=== PATIENT | male | born 1940 | race Caucasian/White ===

== ENCOUNTER 2019-09-08 19:56 | Inpatient (IN) | payer MEDICARE ==
[~2019-09-08] VITALS: Ht 180.3 cm; Wt 96.6 kg
[2019-09-08] MEDS ORDERED: CLOP75TA15 PO (20:28)
[2019-09-08] MEDS ORDERED: NETA2.5D OP (20:28)
[2019-09-08] MEDS ORDERED: SENN-261 PO (20:28)
[2019-09-08] MEDS ORDERED: DOCU-141 PO (20:28)
[2019-09-08] MEDS ORDERED: QUET25TA PO ×2 (20:28)
[2019-09-08] MEDS ORDERED: BISA5TAB10 PO (20:28)
[2019-09-08] MEDS ORDERED: ROSU5TAB PO (20:28)
[2019-09-08] MEDS ORDERED: LATA2.5D2 EACHEYE (20:28)
[2019-09-08] MEDS ORDERED: HALO5VIA9 IM (20:28)
[2019-09-08] MEDS ORDERED: BRIM5DRO2 OP (20:28)
[2019-09-08] MEDS ORDERED: ACET-2154 PO (20:28)
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
--- NOTE | 2019-09-08 21:33 | NUR ---
Pt medically cleared by Dr. Toney. Placed a call to Covering Machine Operator Helper Gricelda, [phone]. No answer, left a message.
--- NOTE | 2019-09-08 22:37 | NUR ---
Received call from Warranty Administrator Gricelda stating that she will be here within 1-2 hours to evaluate the patient.
[2019-09-08 22:51] LABS: BASOPHILS # (AUTO) 0.1 K/uL (0.0-8.0); BASOPHILS % (AUTO) 0.7 % (0.0-2.0); EOSINOPHILS # (AUTO) 0.2 K/uL (0.0-0.7); EOSINOPHILS % (AUTO) 2.9 % (0.0-7.0); HEMATOCRIT 44.6 % (36.7-47.1); HEMOGLOBIN 15.3 g/dL (12.5-16.3); LYMPHOCYTES # (AUTO) 1.4 K/uL (20.0-40.0); LYMPHOCYTES % (AUTO) 16.5 % (20.5-51.5); MEAN CORPUSCULAR HEMOGLOBIN 32.5 uug (23.8-33.4); MEAN CORPUSCULAR HGB CONC 34 g/dL (32.5-36.3); MEAN CORPUSCULAR VOLUME 95.1 fL (73.0-96.2); MONOCYTES # (AUTO) 0.7 K/uL (2.0-10.0); MONOCYTES % (AUTO) 8.1 % (0.0-11.0); NEUTROPHILS # (AUTO) 5.9 K/uL (1.8-8.9); NEUTROPHILS % (AUTO) 71.8 % (38.5-71.5); PLATELET COUNT (AUTO) 200 K/uL (152-348); WHITE BLOOD COUNT (AUTO) 8.2 K/uL (3.6-10.2)
[2019-09-08 23:00] LABS: CARBON DIOXIDE 28 mmol/L (21-32); CHLORIDE 108 mmol/L (98-107); CREATININE 0.6 mg/dL (0.6-1.3); GLUCOSE 96 mg/dL (74-106); POTASSIUM 3.8 mmol/L (3.5-5.1); UREA NITROGEN, BLOOD 13 mg/dL (7-18)
[2019-09-08 23:05] LABS: ALANINE AMINOTRANSFERASE 53 U/L (16-63); ALKALINE PHOSPHATASE 89 U/L (50-136); ASPARTATE AMINOTRANSFERASE 46 U/L (15-37); BILIRUBIN,DIRECT 0.3 mg/dL (0.0-0.2); BILIRUBIN,TOTAL 0.8 mg/dL (0.2-1.0); CREATINE KINASE, TOTAL 98 U/L (39-308); TOTAL PROTEIN, SERUM 7.4 g/dL (6.4-8.2)
[2019-09-08 23:11] LABS: ACETAMINOPHEN < 2.0 ug/mL (10-30); ETHANOL < 3 MG/DL (0-0)
[2019-09-08 23:13] LABS: THYROID STIMULATING HORMONE 0.926 mIU/mL (0.358-3.740)
--- NOTE | 2019-09-09 01:40 | NUR ---
Cat from the Crisis Team at bedside for evaluation.
--- NOTE | 2019-09-09 02:45 | NUR ---
Report given to Stephanie Mckenna RN.
[2019-09-09] MEDS ORDERED: MAGNESIUM HYDROXIDE 30 ML LIQUID UDC PO PRN (03:15)
[2019-09-09] MEDS ORDERED: LORAZEPAM 0.5 MG TABLET PO PRN (03:15)
[2019-09-09] MEDS ORDERED: MAG HYDROX/AL HYDROX/SIMETH 30 ML LIQUID UDC PO PRN (03:15)
--- NOTE | 2019-09-09 06:11 | NUR ---
GPS/RN: PT 79 Y/O MALE ADMITTED TO MHU UNDER THE CARE OF ANT COURTNEY WITH DX OF PSYCHOSIS. PT ADMITTED ON VOLUNTARY STATUS. PT ARRIVED VIA STECHER FROM ER BROUGHT BY STAFF. HISTORY OF DX: DEPRESSION, DEMENTIA, ENCEPHALOPATHY, ANXIETY, HTN AND PSYCHOSIS. PT KAYE IS HIS SON AND NOTIFIED OF ADMISSION. PT A/O X3, CALM BUT CONFUSE AND SOME AGITATION. 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 PT ON AND OFF YELLING IN SINGING LOUDLY. PT UNKEPT, SOME REDNESS ON BUTTOCK AND LEFT HIP DISCOLORATION, PT ON PLAVIS 75MG AND MULTIPLE REDNESS ON BUE NOTED. WILL MONITOR AND ENDORSE TO INCOMING NURSE. PT CLEARLY SPEAK BUT NOTED SOME ANXIETY, PER ADMISSION PT HAD AGGRESSION AND BECAME AGITATED WHILE AT SNF. PT ALSO SAID HE HAD HALLUCINATIONS WHICH STARTED RECENTLY. PT NON AMBULATORY, NEED ASSISTANT SUPERINTENDENT TO TRANSFER BY STAFF. PT THERAPY EVALUATION AND TREAT ORDER ENTERED. PT COVID 19 NEG FROM [facility]. NEW ADMISSION PACKAGE GIVEN AND PT SIGNED ALL FORMS, ADVISED ON RIGHTS AND PLACEMENT. PT WAS TRANSFER TO BED, BUT UP IN CORAL CHAIR NOW TO WATCH TV.
--- NOTE | 2019-09-09 07:18 | NUR ---
DR CAIN WAS NOTIFIED OF PATENT ADMISSION TO MHU. WILL CONTINUE TO MONITOR.
[2019-09-09 07:30] VITALS: BP 150/83
[2019-09-09] MEDS: SERTRALINE HCL 50 MG TABLET PO SCH ×2 (12:35→16:09)
[2019-09-09 15:07] VITALS: BP 148/84
--- NOTE | 2019-09-09 16:41 | NUR ---
received patient up to maria elena-chair, A/O x3 able to make needs known, notified pt's son for patient admitted ,seen and checked by Dr. Marinelli.
[2019-09-09] MEDS ORDERED: BISACODYL 5 MG TABLET.DR PO PRN (18:15)
--- NOTE | 2019-09-09 19:30 | NUR ---
Received patient in the hallway, awake, sitting in a Karla-chair. Not in distress. Deaf on the left ear. Denies any pain/discomforts. Very pleasant and cooperative. No hallucination, aggressiveness, agitation noted.Safety measure and fall precaution maintained. Continue care as planned.
[2019-09-09 20:21] VITALS: BP 155/81
--- NOTE | 2019-09-09 20:36 | NUR ---
BS 194mg/dl. Patient denies s/s of hyperglycemia, claiming that she had a lot of sweet intake today. Refused taking her Zyprexia , Insulin coverage and Lipitor. Charge nurse made aware. Addendum: 09/09/19 at 2041 by ESHA LINDQUIST RN Wrong patient.
[2019-09-09] MEDS: LATANOPROST OPHT DROP 2.5 ML BOTTLE EACHEYE SCH (21:00)
[2019-09-09] MEDS ORDERED: risperiDONE 0.25 MG TABLET PO SCH (21:00)
--- NOTE | 2019-09-10 05:19 | NUR ---
Shift End Report: Vs stable. No complaint presented all night. Slept fairly. Ambulated to the bathroom with FWW with slow, steady gait. Remain calm, and cooperative. Patient was so happy that he got his Hearing Aid back and now he said he can hear much better. All needs attended and met. No significant event reported all night.
--- NOTE | 2019-09-10 06:44 | NUR ---
Slept 4.3 hours.
[2019-09-10 07:30] VITALS: BP 140/81
[2019-09-10] MEDS: DOCUSATE SODIUM 100 MG CAPSULE PO SCH ×2 (08:08→17:08)
[2019-09-10] MEDS: CLOPIDOGREL 75 MG TABLET PO SCH (08:08)
[2019-09-10] MEDS: SERTRALINE HCL 50 MG TABLET PO SCH ×2 (12:45→17:08)
[2019-09-10] MEDS: COMBIGAN 0.2-0.5% EACHEYE SCH ×2 (12:45→17:08)
[2019-09-10 15:02] VITALS: BP 144/80
--- NOTE | 2019-09-10 15:52 | NUR ---
LETICIA Initial Discharge Note: Patient is currently residing at [address] [address] ([phone]) with his Nida Lyon. Per patient's son/DPOA, Hardeep ([phone]) patient might need a transitional facility which [facility] provides for the patient upon discharge prior to going home. Hardeep will be speaking with the commercial administrator at the facility to see which one of their facilities, longterm facility or memory care unit, will have the availability for the patient. LETICIA will continue to work with the patient, family, and MD to ensure a safe and proper discharge plan.
[2019-09-10] MEDS: risperiDONE 0.5 MG TABLET PO SCH (20:30)
[2019-09-10] MEDS: LATANOPROST OPHT DROP 2.5 ML BOTTLE EACHEYE SCH (20:36)
[2019-09-10] MEDS ORDERED: risperiDONE 0.25 MG TABLET PO SCH (21:00)
[2019-09-10 21:05] VITALS: BP 134/74
--- NOTE | 2019-09-10 22:00 | NUR ---
received to care, watching tv, ambulating with front wheel walker, pleasant upon approach. compliant with medications and staff direction. interacts minimally with peers. as of 2199, he remains awake, watching tv. no distress noted. will continue to monitor closely.
[2019-09-10] MEDS: ACETAMINOPHEN 325 MG TABLET PO PRN (22:40)
[2019-09-10] MEDS: TEMAZEPAM 7.5 MG CAPSULE PO PRN (22:40)
--- NOTE | 2019-09-10 22:40 | NUR ---
remains awake. PRN restoril was given, for insomnia.
--- NOTE | 2019-09-10 23:35 | NUR ---
pt found lying in the dining room, on the floor, next to his chair. according to his account, and that of his peer, and verified by the video playback, he was sleepy, so he gently laid himself onto the floor, to sleep. he was assisted back up in the maria elena chair, and went right to sleep. currently at [employer], for safety. no distress noted. Addendum: 09/11/19 at 0102 by TATO IRELAND LVN vital signs and blood sugar wnl.
[2019-09-10 23:40] VITALS: BP 146/90
--- NOTE | 2019-09-11 01:31 | NUR ---
pt is now awake. was assisted to the bathroom, then to bed, with alarm on, for safety.
[2019-09-11 04:46] LABS: *BILIRUBIN,URIN NEGATIVE (NEGATIVE); *BLOOD, URINE NEGATIVE (NEGATIVE); *CLARITY,URINE CLEAR (CLEAR); *COLOR,URINE YELLOW (YELLOW); *KETONES,URINE NEGATIVE (NEGATIVE); *UROBILINOGEN,URINE 0.2 E.U./dl (NORMAL); LEUKOCYTE ESTERASE ,URINE NEGATIVE (NEGATIVE); NITRITE, URINE NEGATIVE (NEGATIVE); PH,URINE 5.5 (5.0-8.0); UGLUCOSE NEGATIVE (NEGATIVE)
[2019-09-11 04:59] LABS: *AMPHETAMINE, URINE NEGATIVE (NEGATIVE); *BARBITURATE, URINE NEGATIVE (NEGATIVE); *CANNABINOID, URINE NEGATIVE (NEGATIVE); *COCCAINE, URINE NEGATIVE (NEGATIVE); *OPIATE, URINE NEGATIVE (NEGATIVE); *PHENCYCLIDINE SCREEN,URINE NEGATIVE (NEGATIVE)
--- NOTE | 2019-09-11 06:00 | NUR ---
slept 4.75 hours. is now awake. monitored closely, for safety. no distress noted.
[2019-09-11 07:30] VITALS: BP 116/71
[2019-09-11] MEDS: DOCUSATE SODIUM 100 MG CAPSULE PO SCH ×2 (08:05→16:16)
[2019-09-11] MEDS: CLOPIDOGREL 75 MG TABLET PO SCH (08:05)
[2019-09-11] MEDS: COMBIGAN 0.2-0.5% EACHEYE SCH ×3 (08:05→16:16)
--- NOTE | 2019-09-11 10:25 | NUR ---
SW Family Contact: Spoke with patient's son/DPOA, Hardeep ([phone]) after speaking with Dr. Marinelli who stated that patient can return home Monday or Monday depending on the facilities availability. Hardeep questioned a lot about the doctor's decision and why she came to this decision. This auto service writer stated that that if the patient does not meet criteria, he can not stay in the acute psych unit longer than he needs, and that he can continue treatment on an outpatient basis with an outpatient psychiatrist. Hardeep did not let this auto service writer speak with the facility environmental technician to arrange discharge planning. Hardeep does not seem to understand the process and in conflicted with his dad returning home or transferring him to the facilities's assisted unit or the memory care unit. Hardeep requested to speak with Dr. Marinelli and this auto service writer forwarded the message to the doctor.
[2019-09-11] MEDS: SERTRALINE HCL 50 MG TABLET PO SCH ×2 (12:45→16:16)
--- NOTE | 2019-09-11 15:12 | NUR ---
SW Family Contact: Spoke with patient's son/DPOA, Hardeep ([phone]) regarding patient's tentative discharge date which is set for Monday to confirm placement for this patient back to [facility]. This typewriter tester explained to Haredep in more dept the process of an acute psych unit and Hardeep was more understanding. Hardeep allowed this typewriter tester to speak with the zoning administrator at the facility, Valentine Andres ([phone]. [phone]) to discuss discharge planning. This typewriter tester was unable to reach Valentine and left a voicemail for a call back.
--- NOTE | 2019-09-11 15:30 | NUR ---
LETICIA Coordination of Care: LETICIA received a call back from Donna medical office administrator of [facility] ([phone]) on behalf of Valentine Turntable Engineer for [facility] ([phone]), regarding patient's discharge planning. Donna stated that they are looking into transferring the patient from the independent living unit of their facility to the assisted living unit. Donna shared that they are guaranteeing a bed available the patient on Monday09/16/19. This contract writer stated that we will plan for the patient for discharge on Monday09/16/19. This contract writer then called patient's son, Hardeep ([phone]) and updated him with the above information. Hardeep is agreeable with this plan for the patient.
[2019-09-11 16:00] VITALS: BP 138/78
--- NOTE | 2019-09-11 17:54 | NUR ---
patient is ambulating with FWW, assisted with all ADLS,compliant with all po medication.
[2019-09-11] MEDS: LATANOPROST OPHT DROP 2.5 ML BOTTLE EACHEYE SCH (20:50)
[2019-09-11] MEDS: risperiDONE 0.5 MG TABLET PO SCH (20:50)
[2019-09-11 21:34] VITALS: BP 150/72
[2019-09-11] MEDS: ACETAMINOPHEN 325 MG TABLET PO PRN (22:11)
[2019-09-11] MEDS: TEMAZEPAM 7.5 MG CAPSULE PO PRN (22:11)
--- NOTE | 2019-09-11 22:11 | NUR ---
remains awake. PRN restoril was given, for insomnia.
--- NOTE | 2019-09-11 23:00 | NUR ---
received to care, up in maria elena chair, watching tv, with peers. pleasant upon approach. compliant with medications, and staff direction. PRN restoril was given for insomnia, at 2210, and he was assisted to bed. as of 2299, he appears to be asleep. no distress noted. will continue to monitor closely.
--- NOTE | 2019-09-12 03:18 | NUR ---
PRN ativan given for restlessness
--- NOTE | 2019-09-12 06:00 | NUR ---
slept 5.75 hours total. continues to sleep. no distress noted.
[2019-09-12 07:30] VITALS: BP 123/66
[2019-09-12] MEDS: DOCUSATE SODIUM 100 MG CAPSULE PO SCH ×2 (08:53→17:09)
[2019-09-12] MEDS: CLOPIDOGREL 75 MG TABLET PO SCH (08:53)
[2019-09-12] MEDS: COMBIGAN 0.2-0.5% EACHEYE SCH ×3 (08:54→17:09)
--- NOTE | 2019-09-12 10:12 | NUR ---
LETICIA Coordination of Care: LETICIA called and spoke with Donna sales support administrator of [facility] ([phone]) to confirm bed availability for the patient for discharge on Monday09/16/19. Donna confirmed and patient's discharge is set for Monday.
[2019-09-12] MEDS: SERTRALINE HCL 50 MG TABLET PO SCH ×2 (12:17→17:09)
--- NOTE | 2019-09-12 15:30 | NUR ---
Social Work Individual Therapy: floor service worker spring met with pt for brief counseling to address patient's aggressive behaviors. Patient presents with euthymic mood and congruent affect. patient states that he has been "thinking a lot while being here", and shares that he gained a lot of insight about himself. SW actively listened and provided support and positive encouragement. Patient shares that he was depressed before but has learned a lot about himself and will continue to focus more on positive aspects and figure out why certain things happen in his life to learn and grow from his experiences. SW highlighted important factors the patient shared and encouraged patient to continue to stay positive and share with this television script writer and his peers.
[2019-09-12 16:00] VITALS: BP 123/63
--- NOTE | 2019-09-12 18:35 | NUR ---
EOS note: No significant acute changes this shift. Pt alert, responsive to verbal and tactile stimuli. Pt. compliant with medications and tx. Pt. exhibits appropriate behavior, no aggression, denies SI. Tolerated meals well. Ambulatory with FWW + 1 person standby assist. Frequent rounding done. Safety measures in place. Will endorse to oncoming shift.
[2019-09-12 20:00] VITALS: BP 126/70
[2019-09-12] MEDS: risperiDONE 0.5 MG TABLET PO SCH (20:28)
[2019-09-12] MEDS: LATANOPROST OPHT DROP 2.5 ML BOTTLE EACHEYE SCH (20:28)
[2019-09-12] MEDS: ACETAMINOPHEN 325 MG TABLET PO PRN (20:32)
[2019-09-12] MEDS: TEMAZEPAM 7.5 MG CAPSULE PO PRN (23:29)
--- NOTE | 2019-09-12 23:29 | NUR ---
assisted to bed. PRN restoril given for insomnia.
--- NOTE | 2019-09-12 23:50 | NUR ---
appears to be asleep. no distress noted.
--- NOTE | 2019-09-13 00:17 | NUR ---
received to care, up in maria elena chair, watching tv, with peers. pleasant upon approach. compliant with medications, and staff direction. as of 2199, he remains awake, watching tv. no distress noted. will continue to monitor closely. Addendum: 09/13/19 at 0019 by TATO IRELAND LVN wrong time documented. should be for 09/12/19 at 2200
[2019-09-13] MEDS: ACETAMINOPHEN 325 MG TABLET PO PRN (04:13)
--- NOTE | 2019-09-13 06:00 | NUR ---
slept 4.75 hours. is now awake. assited with AM care, and shower. currently up in maria elena chair, at nurses station. no distress noted.
[2019-09-13 07:30] VITALS: BP 120/63
--- NOTE | 2019-09-13 08:30 | NUR ---
Received patient in bed, Pt. is AAO x 2-3, NO acute distress noted. Vital signs stable for patient. NO agitation noted. Cooperative with care and will continue with care.
[2019-09-13] MEDS: DOCUSATE SODIUM 100 MG CAPSULE PO SCH ×2 (09:37→17:16)
[2019-09-13] MEDS: CLOPIDOGREL 75 MG TABLET PO SCH (09:37)
[2019-09-13] MEDS: COMBIGAN 0.2-0.5% EACHEYE SCH ×3 (09:39→17:16)
--- NOTE | 2019-09-13 10:08 | NUR ---
SW Family Contact: Spoke left a message for patient's son/DPHardeep CHOWDHURY ([phone]) to confirm what time he scheduled transportation for the patient for his discharge on Monday09/16/19. Awaiting for a call back.
[2019-09-13] MEDS: SERTRALINE HCL 50 MG TABLET PO SCH ×2 (13:26→17:16)
[2019-09-13 15:25] VITALS: BP 117/58
--- NOTE | 2019-09-13 19:16 | NUR ---
Patient in stable condition, NO new chagne of condition noted. Calm and cooperative with care and meds. Vital signs stable. Spoke with son and SW regarding discharge planning. All other needs attended, safety measures in place, skin kept clean and dry and will continue with care.
--- NOTE | 2019-09-13 19:49 | NUR ---
Endorsed to PM shift.
[2019-09-13 20:28] VITALS: BP 130/67
[2019-09-13] MEDS: risperiDONE 0.5 MG TABLET PO SCH (21:03)
[2019-09-13] MEDS: LATANOPROST OPHT DROP 2.5 ML BOTTLE EACHEYE SCH (21:04)
[2019-09-13] MEDS: TEMAZEPAM 7.5 MG CAPSULE PO PRN (22:20)
--- NOTE | 2019-09-13 23:02 | NUR ---
PATIENT RECEIVED IN ACTIVITIES ROOM INTERACTING WITH OTHERS AND WATCHING TELEVISION. PATIENT ALERT/ORIENTED X3 PATIENT IS CALM AND COOPERATIVE. NO AGGRESSIVE OR COMBATIVE BEHAVIOR NOTED. PATIENT COMPLAINT WITH MEDICATION. PATIENT IN NO APPARENT DISTRESS, WILL CONTINUE TO MONITOR. SAFE ENVIRONMENT PROVIDED, FREQUENT ROUNDING, AND CLUTTER FREE ENVIRONMENT. BED IN LOWEST POSITION, BED LOCKED, AND BED ALARM ON WHILE IN BED.
[2019-09-14 07:30] VITALS: BP 124/70
--- NOTE | 2019-09-14 08:00 | NUR ---
GPS: RECEIVED PATIENT AOX3 SEEN SITTING IN THE DINING ROOM WATCHING TV, PATINE CALM COOPERATIVE, NO DISTRESS ON VOLUNTARY STATUS, DENIES SI AND HI, WILL CONTINUE MONITOR
[2019-09-14] MEDS: DOCUSATE SODIUM 100 MG CAPSULE PO SCH ×2 (08:20→16:02)
[2019-09-14] MEDS: CLOPIDOGREL 75 MG TABLET PO SCH (08:20)
[2019-09-14] MEDS: COMBIGAN 0.2-0.5% EACHEYE SCH ×3 (08:25→16:02)
[2019-09-14] MEDS: SERTRALINE HCL 50 MG TABLET PO SCH ×2 (12:01→16:01)
[2019-09-14 16:00] VITALS: BP 114/75
--- NOTE | 2019-09-14 18:13 | NUR ---
patient having issue on the battery of his hearing aid, the junior technical writer tried changing battery but no available same battery for his hearing aid, patient remain calm compliant no distress
--- NOTE | 2019-09-14 19:55 | NUR ---
RECEIVED PATIENT IN HIS ROOM SEATED AT HIS BED. PATIENT HAS NO COMPLAIN OF PAIN AT THIS TIME, PATIENT AMBULATE FROM HIS ROOM TO THE ACTIVITY ROOM, WILL CONTINUE TO MONITOR.
[2019-09-14] MEDS: risperiDONE 0.5 MG TABLET PO SCH (20:35)
[2019-09-14] MEDS: LATANOPROST OPHT DROP 2.5 ML BOTTLE EACHEYE SCH (20:35)
[2019-09-14 20:54] VITALS: BP 116/70
[2019-09-14] MEDS: TEMAZEPAM 7.5 MG CAPSULE PO PRN (23:20)
--- NOTE | 2019-09-14 23:20 | NUR ---
PATIENT COMPLAIN OF UNABLE TO SLEEP, GIVEN RESTORIL ORDERED. PATIENT WAS INSTRUCTED TO GO BACK TO BED SO THAT MEDICATIONS WILL WORK, PATIENT WAS KEPT WARM AND DRY, WILL CONTINUE TO MONITOR.
--- NOTE | 2019-09-15 06:35 | NUR ---
PATIENT AWAKE, NO COMPLAIN OF PAIN NOR DISCOMFORT, NO BEHAVIORAL PROBLEMS NOTED AT THIS TIME, PATIENT SLEPT FOR 2.30 HRS, CONT TO MONITOR.
[2019-09-15 07:30] VITALS: BP 137/58
[2019-09-15] MEDS: CLOPIDOGREL 75 MG TABLET PO SCH (08:31)
[2019-09-15] MEDS: DOCUSATE SODIUM 100 MG CAPSULE PO SCH ×2 (08:31→17:19)
[2019-09-15] MEDS: COMBIGAN 0.2-0.5% EACHEYE SCH ×3 (08:39→17:18)
[2019-09-15] MEDS: SERTRALINE HCL 50 MG TABLET PO SCH ×2 (12:15→17:19)
[2019-09-15 15:38] VITALS: BP 141/76
[2019-09-15 20:32] VITALS: BP 119/70
[2019-09-15] MEDS: LATANOPROST OPHT DROP 2.5 ML BOTTLE EACHEYE SCH (21:04)
[2019-09-15] MEDS: risperiDONE 0.5 MG TABLET PO SCH (21:04)
[2019-09-15] MEDS: TEMAZEPAM 7.5 MG CAPSULE PO PRN (23:08)
[2019-09-16 07:30] VITALS: BP 146/78
[2019-09-16] MEDS: CLOPIDOGREL 75 MG TABLET PO SCH (08:41)
[2019-09-16] MEDS: DOCUSATE SODIUM 100 MG CAPSULE PO SCH (08:41)
[2019-09-16] MEDS: COMBIGAN 0.2-0.5% EACHEYE SCH (08:52)
--- NOTE | 2019-09-16 09:02 | NUR ---
Discharge Note: Patient will be discharged back to [facility] [address] [place] [address] ([phone]). Patients sonHardeep ([phone]) is aware and agreeable with discharge plans and will picking the patient up and providing transportation today at 11am. Spoke with Donna the senior systems administrator at the facility who confirmed patients arrival today and assigned room 11. Patient presents alert and oriented times 4. Patient denies suicidal or homicidal ideation. Patient presents with euthymic mood and congruent affect. Patient will be following up with his primary care physician Dr. Stanislaw Cifuentes [facility], [place] [address] ([phone]) and has a follow up appointment scheduled on September at 11am. Patient will be following up with his psychiatrist Dr. Art [address] [facility] [address], [place] [address] ([phone]) and has a follow up appointment scheduled on September at 2:30pm.
--- NOTE | 2019-09-16 11:18 | NUR ---
Patient discharged back to [facility] ,jessica's son Hardeep picked the patient up at 11am. Patient presents alert and oriented times 4. Patient denies suicidal or homicidal ideation. Patient presents with euthymic mood and congruent affect. Patient will be following up with his primary care physician Dr. Dover .all personal belonging returned to family.
== END 2019-09-16 11:15 | DRG 885 ==
LOC: ER 20:02 → GPS 09-09 02:25
PROVIDERS: ADMIT Psychiatry & Neurology Psychosomatic Medicine; ATTEND Internal Medicine
DX: F33.3 Major depressive disorder, recurrent, severe with psychotic symptoms (principal); D68.69 Other thrombophilia; F03.91 Unspecified dementia, unspecified severity, with behavioral disturbance; I10 Essential (primary) hypertension; D69.6 Thrombocytopenia, unspecified; E78.5 Hyperlipidemia, unspecified; Z99.3 Dependence on wheelchair; E66.9 Obesity, unspecified; Z68.29 Body mass index [BMI] 29.0-29.9, adult; H40.9 Unspecified glaucoma; F41.9 Anxiety disorder, unspecified
CPT/HCPCS: 36415; 70450; 80307; 80329; 84443; 85025; 87086; 93005; A4663; G0480; G0480-TC